=== PATIENT | female | born 1935 | race Caucasian/White ===

== ENCOUNTER → 2016-08-05 | Outpatient (CLI) | payer MEDICARE ==
[2014-08-30 11:18] VITALS: BP 112/56
[~2016-08-05] MED LIST: AMLO5TAB2 PO; ASPI-253 PO; CLOP75TA57 PO; CRESTOR5 MG PO; ERGO50007 PO; ESOM40CA PO; EZET10TA18 PO; GABA-586 PO; HYDR-2762 PO; METO25TA4 PO; OMEG1CAP43 PO; lortab
--- NOTE | 2016-08-06 03:38 | PAIN ---
DATE OF SERVICE: 08/05/2016 PROGRESS NOTE FOR PAIN CLINIC DIAGNOSES: Lumbar radiculopathy with post-lumbar laminectomy syndrome with spinal cord stimulator therapy. HISTORY OF PRESENT ILLNESS: The patient is a 80-year-old female who returns for followup status post spinal cord stimulator placement. The patient was last seen in 2013 with reprogramming performed several times. The patient reports that she is tired with the stimulator, is not controlling her pain significantly and she has had to reprogram several times and put into a non-paresthesia mode as well most recently in 04/2014. Reports still significant pain in the low back and bilateral lower extremities, worse on the left than the right. The patient reports it anywhere from a 7-8 on a scale of 10. Her pain is at least at a 7 and increases to 8, it is radiating and unbearable. The patient would like to have the stimulator removed as she feels it is not functioning appropriately for her and each time it has been reprogrammed there has been no significant change by her report today. She reports no other complaints, but still significant pain in the low back, bilateral lower extremities as noted. The patient reports it awakens her from sleep at night occasionally, but she does feel better with lying down. Again, she has the non-paresthesia stimulation form of her stimulator, but still with significant pain overriding it. PHYSICAL EXAMINATION: VITAL SIGNS: The patient's blood pressure ____, pulse 67, respirations 18, temperature 97.5 degrees Fahrenheit. Height is 4 feet 11 inches, weight 109 pounds. GENERAL: The patient is awake, alert, oriented, appropriate, very pleasant demeanor. HEENT: Shows normocephalic, atraumatic. Extraocular movements are intact and symmetrical. Oral cavity, mucous membranes are moist and pink. Dentition is intact. NECK: Shows anterior throat supple. CHEST: Shows normal on inspection. Breath sounds are clear to auscultation bilaterally. HEART: Shows S1 and S2 clear. ABDOMEN: Soft, nontender, nondistended. No palpable organomegaly. There is no rebound or guarding demonstrated. BACK: Shows spine grossly midline. Well healed surgical scars. There was flattening of the lumbar lordotic curvature. The patient's lumbar paraspinous muscle shows diffuse tenderness bilaterally. The patient has some mild tenderness over the sacroiliac regions, but not over the sacrum. EXTREMITIES: Lower extremities show deep tendon reflexes at 1+ in the patellar and tendo calcaneus tendons. Motor exam is strong with dorsiflexion and extension rated at approximately 4 on a scale of 5, but equal and symmetrical bilaterally. Peripheral pulses are 1+ posterior tibial and dorsalis pedis pulses. No peripheral edema is noted. No clubbing, no cyanosis. Lower extremities are warm and dry to touch, equal in color and appearance. Options were discussed with the patient. We will schedule the patient per her wishes to have removal of the spinal cord stimulator and system in the operating suite once time is available. The patient will go through preoperative assessment and testing as per standard routine and we will plan on removal of the system. KE BLAKE MD DR: LIAM/tessie JOB#: [id number] / [id number]
== END | disposition home or self-care (01) ==
LOC: PNCL 09:38
PROVIDERS: ATTEND Anesthesiology
DX: M54.16 Radiculopathy, lumbar region (principal); M96.1 Postlaminectomy syndrome, not elsewhere classified
CPT/HCPCS: G0463

== ENCOUNTER 2016-08-13 10:40 | Day surgery (SDC) | payer MEDICARE ==
[~2016-08-13] VITALS: Ht 149.9 cm; Wt 49.4 kg
[~2016-08-13 10:40] MED LIST changes: +BACITRACIN 50,000 UNIT in IV NORMAL SALINE 500ML BAG 500 ML IRR ONE; +IV RINGERS,LACTATED 1000ML 1,000 ML IV SCH; +LIDOCAINE 1% 1 ML SYRINGE. ID PRN; +LIDOCAINE 1%/EPI 1:100,000 20 ML VIAL. ONE; +MORPHINE SULFATE 2 MG/ML DISP.SYRIN. IV PRN; +ONDANSETRON PF 4 MG/2 ML VIAL. IV PRN; +PROCHLORPERAZINE 10 MG/2 ML VIAL. IV PRN; +fentaNYL PF VIAL 100 MCG/2 ML VIAL IV PRN
[2016-08-13] MEDS ORDERED: IV RINGERS,LACTATED 1000ML 1,000 ML IV SCH (11:07)
[2016-08-13] MEDS ORDERED: fentaNYL PF VIAL 100 MCG/2 ML VIAL IV PRN ×2 (11:15)
[2016-08-13] MEDS ORDERED: MIDAZOLAM HCL/PF 2 MG/2 ML VIAL. IV PRN (11:15)
[2016-08-13] MEDS ORDERED: LIDOCAINE 1% 1 ML SYRINGE. ID PRN (11:15)
[2016-08-13 11:40] LABS: BASO % 1 % (0-3); EOS % 4 % (0-3); HEMATOCRIT 37.9 % (36.0-47.0); HEMOGLOBIN 12.7 g/dL (12.0-15.5); LYMPH # 2.3 x10^3/uL (1.0-4.8); LYMPH % 42 % (24-48); MEAN CORPUSCULAR HEMOGLOBIN 34 pg (25-35); MEAN CORPUSCULAR HGB CONC 34 g/dL (31-37); MEAN CORPUSCULAR VOLUME 102 fL (79-100); MONO % 7 % (0-9); NEUT % 47 % (31-73); PLATELET COUNT 196 x10^3/uL (140-400); RED BLOOD COUNT 3.72 x10^6/uL (3.50-5.40); RED CELL DISTRIBUTION WIDTH 13.1 % (11.5-14.5); WHITE BLOOD COUNT 5.5 x10^3/uL (4.0-11.0)
[2016-08-13] MEDS ORDERED: ROCURONIUM 50 MG/5 ML VIAL. ONE (12:48)
[2016-08-13] MEDS ORDERED: PROPOFOL 20 ML IV ONE (12:48)
[2016-08-13] MEDS ORDERED: LIDOCAINE 2% PF Vial for OR 5 ML VIAL. ONE (12:48)
[2016-08-13] MEDS ORDERED: fentaNYL PF VIAL 100 MCG/2 ML VIAL ONE (12:48)
[2016-08-13] MEDS ORDERED: ONDANSETRON PF 4 MG/2 ML VIAL. ONE (12:48)
[2016-08-13] MEDS ORDERED: FAMOTIDINE 20 MG/2 ML VIAL ONE (12:48)
[2016-08-13] MEDS ORDERED: DEXAMETHASONE SOD PHOS 20 MG/5 ML VIAL. ONE (12:48)
[2016-08-13] MEDS ORDERED: ePHEDrine PF IN SALINE 50 MG/5 ML DISP.SYRIN IV ONE (13:16)
[2016-08-13] MEDS ORDERED: GLYCOPYRROLATE 1 MG/5 ML VIAL. ONE (13:41)
[2016-08-13] MEDS ORDERED: NEOSTIGMINE METHYLSULFATE 5 MG/5 ML SYRINGE. ONE (13:41)
[2016-08-13] MEDS ORDERED: DESFLURANE 61 TO 120 MINUTES IH ONE (14:04)
--- NOTE | 2016-08-13 14:14 | DISCH ---
DISCHARGE INSTRUCTIONS Condition on Discharge Condition on Discharge: Stable Activity After Discharge Activity Instructions for Disc: Resume previous activity, Activity as tolerated , Avoid exertion Bathing Instructions: Shower-keep dressing dry, No Tub Bath until see Driving Instructions after Dis: Do not drive today Diet after Discharge Diet after Discharge: Regular Wound Incision Care Wound/Incision Care: Reinforce dressing PRN Contacting the DRHollis after DC Call your doctor for: Concerns you may have KE BLAKE MD Aug 13, 2016 14:14
[2016-08-13] MEDS: fentaNYL PF VIAL 100 MCG/2 ML VIAL IV PRN ×2 (14:36→14:58)
[2016-08-13] MEDS ORDERED: HYDROcodone/APAP 7.5/325MG 1 TAB TABLET PO ONE (15:15)
[2016-08-13 15:45] VITALS: BP 123/60
--- NOTE | 2016-08-13 18:40 | OP ---
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 PROCEDURE: Spinal cord stimulator system removal. ANESTHESIA: General endotracheal. BLOOD LOSS: Approximately 10 mL. COMPLICATIONS: None. DESCRIPTION OF PROCEDURE: The patient was consented for removal of the spinal cord stimulator system with the risks discussed including, but not limited to bleeding, infection, possibility of epidural hematoma and subsequent neurological compromise, dural punctures, headaches, spinal cord and/or nerve damage, exposure to fluoroscopy and poor results regarding pain control postoperatively. The patient understands and wishes to proceed. The patient was taken to the operating suite number 6 and after general endotracheal anesthesia was induced, the patient was placed in the prone position with all pressure points padded. Breath sounds were clear to auscultation bilaterally at this time. The patient's back was then prepped and sterilely draped waiting for full 3 minutes for the prep to dry before draping. Drapes were then placed in the usual fashion with inspection of the patient's back showing well-healed surgical scars in both the lumbar and right posterior gluteus. The posterior gluteus was palpated with easily palpable spinal cord stimulator identifiable on to the skin, using a 10 blade scalpel, was incised over the stimulator ____ in a transverse fashion. Local bleeding was controlled using electrocautery and pressure. The pocket was then dissected out around the stimulator battery and the battery was then expressed and removed with the leads still in place and intact. At this time, the area in the lumbar spine at the site of the anchoring position for the spinal cord stimulator leads was then incised using a 10 blade scalpel in a sagittal direction and carefully dissected using blunt and dull dissection to uncover the stimulator wire anchoring devices. These were identified without difficulty and isolated using blunt and dull dissection. Local hemorrhage was controlled using electrocautery and pressure. The stimulator anchoring devices were then dissected out of the scar tissue. Sutures were then cut and removed, each of these on the paraspinous region of the lumbar spine and were excised. The stimulator wires were then completely withdrawn with the tips intact and the electrodes intact as well on both of the spinal cord stimulator wires. The wires were then extracted through the pocket on the distal end as well as the generator battery. Both wires were removed in their entirety with tips intact and electrodes fully visible on each end of the stimulator wires. The wounds were then inspected and irrigated with bacitracin irrigation x 3 in each wound, re-inspected with local hemorrhage control with electrocautery and pressure. No active hemorrhaging was noted in either of the pocket. The stimulator battery pocket over the right gluteus was then inspected and the scar tissue excised with blunt dissection with Metzenbaum scissors meticulously and slowly just the superficial layer to remove the lining of the fibrinous tissue from the pocket. This was re-irrigated with bacitracin irrigation x 3 and re-inspected and local hemorrhage was controlled with electrocautery with very minimal electrocautery required. At this time, the wounds were then both closed each with an interrupted 2-0 Vicryl suture for the subcutaneous tissues and fascia and then a running suture of 3-0 Vicryl for the skin closure. Mastisol, Steri-Strips and ____ ion dressings were then placed on each of the wound sites. The patient tolerated the procedure well, had no complications and was awakened and taken to recovery room awake, alert and in stable condition. KE BLAKE MD DR: LIAM/tessie JOB#: [id number] / [id number]
== END 2016-08-13 16:03 | disposition home or self-care (01) ==
LOC: SURG 10:40
PROVIDERS: ATTEND Anesthesiology
DX: Z46.2 Encounter for fitting and adjustment of other devices related to nervous system and special senses (principal); M54.16 Radiculopathy, lumbar region; M96.1 Postlaminectomy syndrome, not elsewhere classified; E78.00 Pure hypercholesterolemia, unspecified; I10 Essential (primary) hypertension; Z86.69 Personal history of other diseases of the nervous system and sense organs; Z90.710 Acquired absence of both cervix and uterus; Z90.49 Acquired absence of other specified parts of digestive tract; M19.90 Unspecified osteoarthritis, unspecified site; Z96.652 Presence of left artificial knee joint; F17.200 Nicotine dependence, unspecified, uncomplicated; Z72.0 Tobacco use; Z86.14 Personal history of Methicillin resistant Staphylococcus aureus infection
CPT/HCPCS: 36415; 63661; 63688; 85027; C1769; J0780; J1100; J1956; J2405; J2704; J2710; J3010; J3490; J7040; J7120; S0028

== ENCOUNTER → 2016-08-24 | Outpatient (CLI) | payer MEDICARE ==
[2016-08-13 15:45] VITALS: BP 123/60
[~2016-08-24] MED LIST changes: -BACITRACIN 50,000 UNIT in IV NORMAL SALINE 500ML BAG 500 ML IRR ONE; -IV RINGERS,LACTATED 1000ML 1,000 ML IV SCH; -LIDOCAINE 1% 1 ML SYRINGE. ID PRN; -LIDOCAINE 1%/EPI 1:100,000 20 ML VIAL. ONE; -MORPHINE SULFATE 2 MG/ML DISP.SYRIN. IV PRN; -ONDANSETRON PF 4 MG/2 ML VIAL. IV PRN; -PROCHLORPERAZINE 10 MG/2 ML VIAL. IV PRN; -fentaNYL PF VIAL 100 MCG/2 ML VIAL IV PRN
== END | disposition home or self-care (01) ==
LOC: PNCL 11:19
PROVIDERS: ATTEND Anesthesiology
DX: M54.16 Radiculopathy, lumbar region (principal); M96.1 Postlaminectomy syndrome, not elsewhere classified
CPT/HCPCS: G0463

== ENCOUNTER → 2016-09-01 | Outpatient (CLI) | payer MEDICARE ==
[~2016-09-01] VITALS: Ht 149.9 cm; Wt 49.4 kg
--- NOTE | 2016-09-01 08:38 | RAD ---
Indication MRI screening. A single AP view of the chest was obtained and is compared to an examination 08/08/2014. Postoperative changes at the GE junction and in the neck are noted. There are suspect background changes of fibrosis. No gross congestive heart failure is seen. There is no focal infiltrate. No pleural fluid or pneumothorax is seen. There is mild scoliosis. The neural stimulating device seen on the previous examination is no longer apparent. IMPRESSION: Neuro stimulating device seen previously is no longer apparent and presumably has been removed. Correlation with clinical history advised. No acute finding in the chest.
[2016-09-01 09:46] VITALS: BP 169/80
--- NOTE | 2016-09-01 09:59 | RAD ---
EXAM: MRI thoracic spine without contrast. HISTORY: Thoracic back pain, spinal stimulator removal. TECHNIQUE: MRI of the thoracic spine was performed without intravenous contrast. COMPARISON: CT January 07, 2016. FINDINGS: There is solid noninstrumented fusion from C5 through C7. There is 3 mm anterolisthesis at C4-5. There also appears to be grade 1 anterolisthesis at L2-3 at the inferior margin of the field of view. Instrumented posterior lumbar fusion is incompletely assessed on the product test engineer series. There is a mild to moderate thoracolumbar S-shaped scoliosis. There is no abnormal cord signal. There is endplate edema from T6 through T9. Subchondral fracture lines are suspected at least at T6-7, associated with minimal acute to subacute compression deformities. Chronic compression deformities are moderate at T5, mild at T6 and mild at T11. Degenerative disc disease is moderate from T6 through T9 and mild elsewhere in the thoracic spine. There are small to moderate posterior disc bulge from T5 through T10 and at T11-12, without central canal stenosis. There is a moderate right paracentral inferior extrusion at T12-L1, measuring 11 mm craniocaudally. It narrows the right lateral recess. Neural foraminal stenosis is mild to moderate on the left at T5-T10, except at T8-9 where it is moderate to severe. On the right, neural foraminal stenosis is mild from T7 through T12. IMPRESSION: 1. Endplate edema from T6 through T9 may be discogenic or reflect minimal compression deformities. Degenerative disc disease is moderate from T6 through T9 and mild elsewhere. 2. Additional chronic compression deformities are moderate at T5 and mild elsewhere as above. 3. Mild to moderate S-shaped thoracolumbar scoliosis. 4. Moderate right paracentral inferior extrusion at T12-L1 narrowing the right lateral recess. 5. Grade 1 anterolisthesis at C4-5 and L2-3. Cervical and lumbar fusion changes as above. *One or more of the following individualized dose reduction techniques were utilized for this examination: 1. Automated exposure control. 2. Adjustment of the mA and/or kV according to patient size. 3. Use of iterative reconstruction technique. Electronically signed by: Jagdish Biswas MD (09/01/2016 9:56 AM)
--- NOTE | 2016-09-01 15:14 | RAD ---
Brief interventional radiology consultation note 09/01/2016 Discussion: Mrs Macy Barrera was referred to the interventional radiology service limited for evaluation of possible treatment of multiple thoracic compression deformities. She has a long history of back pain, and is been followed by pain management in the past. An MRI of the thoracic spine was obtained today to evaluate the chronicity of multiple vertebral compression deformities. There is a dextroscoliosis of the thoracic spine with subsequent subchondral sclerosis and mild edema involving the left-sided endplates at T6-7 likely reflecting degenerative disc disease and mild resultant subchondral edema. Chronic compression deformities at T5, T6, and T11 are noted without evidence of acute compression or fracture. The patient describes her pain is slowly increasing over time without recent injury resulting in acute onset pain .Given findings on MRI, patient history is unlikely that she would benefit from vertebral augmentation at this time. Findings were discussed the patient.
== END | disposition home or self-care (01) ==
LOC: MRI 09:53
PROVIDERS: ATTEND Anesthesiology
DX: S22.059A Unspecified fracture of T5-T6 vertebra, initial encounter for closed fracture (principal); S22.089A Unspecified fracture of T11-T12 vertebra, initial encounter for closed fracture; X58.XXXA Exposure to other specified factors, initial encounter; Y93.9 Activity, unspecified; Y92.89 Other specified places as the place of occurrence of the external cause; Y99.9 Unspecified external cause status; M41.85 Other forms of scoliosis, thoracolumbar region; M51.34 Other intervertebral disc degeneration, thoracic region; Z86.69 Personal history of other diseases of the nervous system and sense organs; E78.00 Pure hypercholesterolemia, unspecified; I10 Essential (primary) hypertension; J44.9 Chronic obstructive pulmonary disease, unspecified; Z90.49 Acquired absence of other specified parts of digestive tract; Z90.710 Acquired absence of both cervix and uterus; Z96.652 Presence of left artificial knee joint; Z86.14 Personal history of Methicillin resistant Staphylococcus aureus infection; Z88.6 Allergy status to analgesic agent; Z88.0 Allergy status to penicillin
CPT/HCPCS: 71010; 72146

== ENCOUNTER → 2016-11-19 | Outpatient (CLI) | payer MEDICARE ==
[2016-11-11 10:49] VITALS: BP 99/61
[~2016-11-19] MED LIST changes: +CITA10TA4 PO; +FENT1PAT90 TD; +FLUD0.1T PO; +HYDR-2766 PO
[2016-11-19 13:04] LABS: BASO % 1 % (0-3); EOS % 5 % (0-3); HEMATOCRIT 34.9 % (36.0-47.0); HEMOGLOBIN 11.7 g/dL (12.0-15.5); LYMPH # 2.1 x10^3/uL (1.0-4.8); LYMPH % 33 % (24-48); MEAN CORPUSCULAR HEMOGLOBIN 34 pg (25-35); MEAN CORPUSCULAR HGB CONC 33 g/dL (31-37); MEAN CORPUSCULAR VOLUME 101 fL (79-100); MONO % 8 % (0-9); NEUT % 53 % (31-73); PLATELET COUNT 197 x10^3/uL (140-400); RED BLOOD COUNT 3.45 x10^6/uL (3.50-5.40); WHITE BLOOD COUNT 6.4 x10^3/uL (4.0-11.0)
[2016-11-19 13:18] LABS: CALCIUM 8.5 mg/dL (8.5-10.1); GFR 53.5; POTASSIUM 3.7 mmol/L (3.5-5.1)
[2016-11-19 13:25] LABS: ALBUMIN 3.3 g/dL (3.4-5.0); TOTAL BILIRUBIN 0.4 mg/dL (0.2-1.0); TOTAL PROTEIN 6.5 g/dL (6.4-8.2)
== END | disposition home or self-care (01) ==
LOC: LAB 12:32
PROVIDERS: ATTEND Specialist
DX: R79.89 Other specified abnormal findings of blood chemistry (principal)
CPT/HCPCS: 36415; 80053; 85025

== ENCOUNTER 2016-12-20 13:25 | Emergency (ER) | payer MEDICARE ==
[~2016-12-20] VITALS: Ht 149.9 cm; Wt 48.5 kg
[2016-12-20 14:13] LABS: BASO % 1 % (0-3); EOS % 0 % (0-3); HEMATOCRIT 39.6 % (36.0-47.0); HEMOGLOBIN 13.2 g/dL (12.0-15.5); LYMPH # 1.4 x10^3/uL (1.0-4.8); LYMPH % 27 % (24-48); MEAN CORPUSCULAR HEMOGLOBIN 33 pg (25-35); MEAN CORPUSCULAR HGB CONC 33 g/dL (31-37); MEAN CORPUSCULAR VOLUME 100 fL (79-100); MONO % 6 % (0-9); NEUT % 65 % (31-73); PLATELET COUNT 226 x10^3/uL (140-400); RED BLOOD COUNT 3.95 x10^6/uL (3.50-5.40); WHITE BLOOD COUNT 5.3 x10^3/uL (4.0-11.0)
[2016-12-20 14:33] LABS: CALCIUM 9.4 mg/dL (8.5-10.1); CREATININE 1.1 mg/dL (0.6-1.0); GFR 47.9; POTASSIUM 3.5 mmol/L (3.5-5.1)
--- NOTE | 2016-12-20 14:33 | RAD ---
CT of the head without contrast, 12/20/2016: History: Altered mental status There is moderate cerebral atrophy. There are patchy lucencies in the deep white matter compatible with chronic ischemic change. These findings were also evident on the MR study of 11/11/2016. An old lacunar infarct is present anteriorly in the right basal ganglia. The ventricles are mildly prominent on a compensatory basis. There is no shift of the midline structures. There is no evidence of acute intracranial hemorrhage or mass effect. There is calcific plaquing of the distal internal carotid and vertebral arteries. IMPRESSION: 1. Chronic findings as described above. 2. No acute intracranial abnormality is detected. PQRS Compliance Statement: One or more of the following individualized dose reduction techniques were utilized for this examination: 1. Automated exposure control 2. Adjustment of the mA and/or kV according to patient size 3. Use of iterative reconstruction technique
[2016-12-20 14:40] LABS: ALBUMIN 3.6 g/dL (3.4-5.0); TOTAL BILIRUBIN 0.5 mg/dL (0.2-1.0); TOTAL PROTEIN 7.2 g/dL (6.4-8.2)
--- NOTE | 2016-12-20 14:46 | PHYS DOC ---
Past Medical History Past Medical History: Arthritis, DVT, Hypertension, P.U.D. Past Surgical History: Angioplasty, Cholecystectomy, Hysterectomy Additional Past Surgical Histo: 1/2 OF STOMACH REMOVED R/T ULCERS Alcohol Use: None Drug Use: None Adult General Chief Complaint Chief Complaint: ALTERED MENTAL STATUS HPI HPI Patient is a 81 year old female who presents with altered mental status and headache. Patient reports right temporal headache 1 week. Headache is described as dull and is not improved with her fentanyl patch for chronic pain. Patient could not find her dentures which were inside her mouth and could not load K her phone insulation cupola charger which was plugged into the ball in front of her. This is uncharacteristic of the patient cannot recall the episode. Patient denies nausea, dizziness, focal extremity weakness, loss of sensation. Denies chest pains, palpitations or change in chronic cough. Denies abdominal pain, urinary frequency, urgency or flank pain. Patient had bouts of confusion this morning according to her daughter and neighbor who are caregivers.s.[] Review of Systems Review of Systems Review symptoms as per history of present illness. All other review symptoms are negative. Current Medications Current Medications Current Medications Medications (Trade) Dose Ordered Sig/Estella Start Time Stop Time Status Last Admin Dose Admin Fentanyl Citrate (Fentanyl 2ml Vial) 50 mcg 1X ONCE 12/20/16 16:30 12/20/16 16:31 DC 12/20/16 16:56 50 MCG Metoclopramide HCl (Reglan) 10 mg 1X ONCE 12/20/16 16:30 12/20/16 16:31 DC 12/20/16 16:55 10 MG Ondansetron HCl (Zofran) 4 mg 1X ONCE 12/20/16 16:30 12/20/16 16:31 DC 12/20/16 16:56 4 MG Prochlorperazine Edisylate (Compazine) 5 mg 1X ONCE 12/20/16 16:30 12/20/16 16:31 DC 12/20/16 16:56 5 MG Sodium Chloride 1,000 ml @ 1,000 mls/hr 1X ONCE 12/20/16 15:30 12/20/16 16:29 DC 12/20/16 15:48 1,000 MLS/HR Allergies Allergies Allergies Coded Allergies Type Severity Reaction Last Updated Verified Penicillins Allergy Intermediate rash 08/13/16 Yes codeine Adverse Reaction Intermediate Nausea 08/13/16 Yes oxycodone Adverse Reaction Intermediate Went crazy 08/13/16 Yes Physical Exam Physical Exam Constitutional: Well developed, well nourished, no acute distress, non-toxic appearance. [] HENT: Normocephalic, atraumatic, bilateral external ears normal, oropharynx moist, no oral exudates, nose normal. [] Eyes: PERRL. [] Neck: Normal range of motion. [] Cardiovascular:Heart rate regular rhythm, no murmur [] Lungs & Thorax: Patient's nonlabored, diminished breath sounds bilaterally.[] Abdomen: Bowel sounds normal, soft, no tenderness, no masses, no pulsatile masses. [] Skin: Warm, dry, no erythema, no rash. [] Back: No tenderness [] Extremities: No tenderness, no cyanosis, no clubbing, ROM intact, no edema. [] Neurologic: Alert and oriented to person and place,, normal motor function, normal sensory function, no focal deficits noted. [] Psychologic: Affect normal, judgement normal, mood normal. [] Current Patient Data Vital Signs Vital Signs Date Time Temp Pulse Resp B/P (MAP) Pulse Ox O2 Delivery O2 Flow Rate FiO2 12/20/16 18:34 90 20 93 12/20/16 13:44 98.4 141/91 (108) Room Air 98.4 Lab Values Laboratory Tests Test 12/20/16 14:08 12/20/16 14:55 12/20/16 16:45 White Blood Count 5.3 x10^3/uL (4.0-11.0) Red Blood Count 3.95 x10^6/uL (3.50-5.40) Hemoglobin 13.2 g/dL (12.0-15.5) Hematocrit 39.6 % (36.0-47.0) Mean Corpuscular Volume 100 fL (79-100) Mean Corpuscular Hemoglobin 33 pg (25-35) Mean Corpuscular Hemoglobin Concent 33 g/dL (31-37) Red Cell Distribution Width 13.0 % (11.5-14.5) Platelet Count 226 x10^3/uL (140-400) Neutrophils (%) (Auto) 65 % (31-73) Lymphocytes (%) (Auto) 27 % (24-48) Monocytes (%) (Auto) 6 % (0-9) Eosinophils (%) (Auto) 0 % (0-3) Basophils (%) (Auto) 1 % (0-3) Neutrophils # (Auto) 3.5 x10^3uL (1.8-7.7) Lymphocytes # (Auto) 1.4 x10^3/uL (1.0-4.8) Monocytes # (Auto) 0.3 x10^3/uL (0.0-1.1) Eosinophils # (Auto) 0.0 x10^3/uL (0.0-0.7) Basophils # (Auto) 0.0 x10^3/uL (0.0-0.2) Sodium Level 137 mmol/L (136-145) Potassium Level 3.5 mmol/L (3.5-5.1) Chloride Level 99 mmol/L (98-107) Carbon Dioxide Level 25 mmol/L (21-32) Anion Gap 13 (6-14) Blood Urea Nitrogen 26 mg/dL (7-20) H Creatinine 1.1 mg/dL (0.6-1.0) H Estimated GFR (Cockcroft-Gault) 47.9 BUN/Creatinine Ratio 24 (6-20) H Glucose Level 98 mg/dL (70-99) Calcium Level 9.4 mg/dL (8.5-10.1) Total Bilirubin 0.5 mg/dL (0.2-1.0) Aspartate Amino Transferase (AST) 75 U/L (15-37) H Alanine Aminotransferase (ALT) 98 U/L (14-59) H Alkaline Phosphatase 280 U/L (46-116) H Total Protein 7.2 g/dL (6.4-8.2) Albumin 3.6 g/dL (3.4-5.0) Albumin/Globulin Ratio 1.0 (1.0-1.7) Urine Collection Type U cath Urine Color Yellow Urine Clarity Clear Urine pH 6.0 Urine Specific [place] 1.025 Urine Protein 100 mg/dL (NEG-TRACE) Urine Glucose (UA) Negative mg/dL (NEG) Urine Ketones (Stick) 15 mg/dL (NEG) Urine Blood Negative (NEG) Urine Nitrite Negative (NEG) Urine Bilirubin Moderate (NEG) Urine Urobilinogen Dipstick 1.0 mg/dL (0.2 mg/dL) Urine Leukocyte Esterase Negative (NEG) Urine RBC 0 /HPF (0-2) Urine WBC Occ /HPF (0-4) Urine Squamous Epithelial Cells None /LPF Urine Amorphous Sediment Present /HPF Urine Bacteria 0 /HPF (0-FEW) Urine Hyaline Casts Occasional /HPF Ammonia < 10 mcmol/L (11-34) L Laboratory Tests 12/20/16 14:08 Laboratory Tests 12/20/16 14:08 EKG EKG [EKG: Sinus rhythm, rate 70, no acute ST-T wave changes, prolonged QT interval 503, EKG interpreted by me.] Radiology/Procedures Radiology/Procedures [CT head: Chest x-ray AP: ] Course & Med Decision Making Course & Med Decision Making Pertinent Labs and Imaging studies reviewed. (See chart for details) [Patient's mental status fully resolved prior to ED arrival. Patient with normal neurologic exam in the ED. Imaging, lab work unremarkable. Patient requesting discharge home. Recommend watchful waiting, close PCP follow-up, return precautions reviewed. Patient verbalizes understanding and agreement prior to departure. Dragon Disclaimer Dragon Disclaimer This electronic medical record was generated, in whole or in part, using a voice recognition dictation system. Departure Departure Impression: Primary Impression: Altered mental status Disposition: 01 HOME, SELF-CARE Admitting Physician: Allyn Rivera Condition: GOOD Referrals: DEEPTI WILEY MD (PCP) MARCE NANCE DO Dec 20, 2016 14:46
--- NOTE | 2016-12-20 14:49 | EKG ---
[facility] [address] [place] [address] Test Date: 2016-12-20 Test Time: 14:14:47 Pat Name: KORY GAN Department: Room: Gender: F Buhr Dresser: : [id number] Requested By: MARCE NANCE Order Number: [id number] Reading MD: Addie Bacon Measurements Intervals [place] Rate: 78 P: 30 WV: 180 QRS: 26 QRSD: 88 T: 56 QT: 438 QTc: 503 Interpretive Statements SINUS RHYTHM PROLONGED QT Electronically Signed On 12-21-2016 19:33:54 CDT by Addie Bacon
--- NOTE | 2016-12-20 14:52 | RAD ---
Portable chest, 12/20/2016: History: Cough, shortness of breath Comparison is made to a study from 11/11/2016. The heart size and pulmonary vascularity are normal. There is calcific plaquing and tortuosity of the thoracic aorta. No acute infiltrate is seen. There is no evidence of pleural fluid. Surgical clips are projected over the lower neck and GE junction regions. IMPRESSION: No acute cardiopulmonary abnormality is detected.
[2016-12-20 15:13] LABS: BILIRUBIN,URINE MODERATE (NEG); GLUCOSE,URINE NEGATIVE (NEG); NITRITE,URINE NEGATIVE (NEG); PROTEIN,URINE 100 mg/dL (NEG-TRACE)
[2016-12-20] MEDS ORDERED: IV NORMAL SALINE 1000ML BAG 1,000 ML IV ONE (15:30)
[2016-12-20 15:31] LABS: BACTERIA,URINE 0 /HPF (0-FEW); RBC,URINE 0 /HPF (0-2); WBC,URINE OCC /HPF (0-4)
[2016-12-20] MEDS ORDERED: fentaNYL PF VIAL 100 MCG/2 ML VIAL IV ONE (16:30)
[2016-12-20] MEDS ORDERED: ONDANSETRON PF 4 MG/2 ML VIAL. IV ONE (16:30)
[2016-12-20] MEDS ORDERED: METOCLOPRAMIDE HCL 10 MG/2 ML VIAL. IV ONE (16:30)
[2016-12-20] MEDS ORDERED: PROCHLORPERAZINE 10 MG/2 ML VIAL. IV ONE (16:30)
--- NOTE | 2016-12-20 16:49 | RAD ---
INDICATION: Bilateral flank pain COMPARISON: 01/08/2006 TECHNIQUE: Axial CT images were obtained through the abdomen and pelvis without intravenous contrast. Coronal reformations were processed. FINDINGS: Mild linear opacity bilateral lung base, could be atelectasis or scarring. Small pericardial fluid. Severe calcific atherosclerosis. Infrarenal abdominal aortic aneurysmal dilatation measuring up to about 36 x 31 mm. Iliac artery stents again seen. There is some prominence in size of the right common femoral artery measuring up to about 15 mm. Adjacent to the infrarenal abdominal aorta there is some soft tissue density material seen within the region. Measures up to about 2 cm in thickness. No intrahepatic bile duct dilation. Poor evaluation of the pancreas without contrast. No definite peripancreatic edema. Common bile duct measures up to approximately 8-9 mm. Splenic calcified granulomas. Multiple calcifications within the bilateral kidneys without hydronephrosis. Suspected exophytic lesion right kidney measuring approximately 1 cm. Within the subcutaneous soft tissues at the right back posterior laterally there is a 17 x 44 mm low density region seen within the subcutaneous fat. Postoperative changes with hardware seen in the right proximal femur. Colonic diverticulosis. No definite dilated loops of bowel to suggest obstruction. Within the right hemipelvis there are couple of calcifications identified. One of them is within the urinary bladder near the location of the ureterovesicular junction measuring up to 8 mm in one is at the expected location of the right distal ureter measuring up to about a centimeter. Degenerative changes throughout the spine with mild scoliotic curvature. Postoperative changes status post posterior spinal fusion and decompression with pedicle screws and stabilizing rods seen at L3-4. Degenerative changes throughout the spine contributing to multilevel central canal and neural foraminal stenosis. Grade 1 anterolisthesis of L2 on 3. Mild T11 compression deformity again seen. IMPRESSION: 1. There are couple of calcifications seen within the right hemipelvis near the expected location of the right distal ureter. Could be secondary to distal ureter stone. There is not significant associated hydronephrosis at this time. 2. Infrarenal abdominal aortic aneurysmal dilatation. In addition there is a region of soft tissue density seen adjacent to the aorta. Although this could be secondary to some loops of unopacified bowel within the region or confluent fibrosis would consider obtaining a CT of the abdomen and pelvis with intravenous and oral contrast to further evaluate and to ensure that this is not from alternative causes such as lymphadenopathy within the region or blood within the region given the proximity to the aneurysm sac. 3. At the right flank subcutaneous soft tissues posteriorly there is a focal soft tissue density region seen. This is of unknown etiology and could be from causes such as confluent fibrosis or postoperative changes within the region but other causes such as a soft tissue mass or subcutaneous hematoma is also within the differential. Follow-up could be obtained to ensure no growth. PQRS Compliance Statement: One or more of the following individualized dose reduction techniques were utilized for this examination: 1. Automated exposure control 2. Adjustment of the mA and/or kV according to patient size 3. Use of iterative reconstruction technique
[2016-12-20 18:34] VITALS: BP 128/88
== END 2016-12-20 18:36 | disposition home or self-care (01) ==
LOC: ER 13:25
DX: R41.82 Altered mental status, unspecified (principal); R51 Headache; G89.29 Other chronic pain; I10 Essential (primary) hypertension; Z86.73 Personal history of transient ischemic attack (TIA), and cerebral infarction without residual deficits; Z86.718 Personal history of other venous thrombosis and embolism; Z88.5 Allergy status to narcotic agent; Z88.0 Allergy status to penicillin
CPT/HCPCS: 36415; 51702; 70450; 71010; 74176; 80053; 81001; 82140; 85025; 93005; 96361; 96374; 96375; 99285; J0780; J2405; J2765; J3010; J7030